=== PATIENT | female | born 1940 | race Caucasian/White ===

== ENCOUNTER 2017-06-08 15:20 | Emergency (ER) | payer MEDICARE ==
[2017-06-08 15:59] LABS: BASOPHILS 0.3 % (0-2); EOSINOPHILS 5.9 % (0-7); HEMATOCRIT 42.8 % (36.0-48.0); HEMOGLOBIN 14.2 g/dL (12-16); IMMATURE GRANULOCYTES 0.3 % (0-5); LYMPHOCYTES 45.1 % (15-50); MCH 31.8 pg (26.0-34.0); MCHC 33.2 g/dL (31.0-37.0); MEAN PLATELET VOLUME 9.8 fL (7.4-10.4); MONOCYTES 8.3 % (2-11); NEUTROPHILS 40.1 % (40-80); PLATELET COUNT 229 10x3/uL (130-400); RBC 4.46 10x6/uL (4.00-5.40); RDW 12.9 % (11.5-14.5); WBC 7.8 10x3/uL (4.8-10.8)
[2017-06-08 16:10] LABS: APTT 34.2 SECONDS (22.8-39.4); INR 2.22 (0.85-1.17)
[2017-06-08 16:44] LABS: ALBUMIN 3.4 g/dL (3.4-5.0); ANION GAP 15.7 mmol/L (8-16); BILIRUBIN - TOTAL 0.3 mg/dL (0.2-1.3); CALCIUM 9.3 mg/dL (8.5-10.1); CARBON DIOXIDE 24.7 mmol/L (21.0-32.0); CREATININE - SERUM 1.6 mg/dL (0.6-1.3); POTASSIUM - SERUM 4.4 mmol/L (3.5-5.1); PROTEIN - SERUM 6.8 g/dL (6.4-8.2)
== END 2017-06-08 17:30 | disposition home or self-care (01) ==
LOC: D.ER 15:20
PROVIDERS: Emergency Medicine
DX: J20.9 Acute bronchitis, unspecified (principal); J01.90 Acute sinusitis, unspecified; J11.1 Influenza due to unidentified influenza virus with other respiratory manifestations